=== PATIENT | female | born 1960 | race Caucasian/White ===

== ENCOUNTER 2021-09-01 08:07 | Day surgery (SDC) | payer OTHER ==
[2021-09-01] MEDS ORDERED: Depo-Medrol 40 MG/ML IM ONE (08:08)
[2021-09-01] MEDS ORDERED: Marcaine Mpf 0.5% Vial 30 Ml IJ ONE (08:08)
[2021-09-01] MEDS ORDERED: Lactated Ringers 1,000 ML IV ONE (10:23)
--- NOTE | 2021-09-01 11:38 | XRAY ---
Indication: Bilateral SI joint injection. Intraoperative fluoroscopy provided for 20 seconds. 4 digital spot image submitted for interpretation demonstrates posterior needle tip projecting over the inferior left and right SI joint. Correlate with intraoperative findings/report.
--- NOTE | 2021-09-01 12:01 | XRAY ---
20 seconds of fluoroscopy was used in surgery for a bilateral sacroiliac joint injection.
== END 2021-09-01 09:37 | disposition home or self-care (01) ==
LOC: SDC-PAIN 08:07
PROVIDERS: ATTEND Psychiatry & Neurology Pain Medicine
DX: M46.1 Sacroiliitis, not elsewhere classified (principal); E11.9 Type 2 diabetes mellitus without complications; Z79.899 Other long term (current) drug therapy
CPT/HCPCS: 27096; 72202; 77002; 82947; J1030; G0260

== ENCOUNTER 2021-10-20 09:39 | Day surgery (SDC) | payer OTHER ==
[2021-10-20] MEDS ORDERED: Marcaine Mpf 0.5% Vial 30 Ml IJ ONE (09:40)
[2021-10-20] MEDS ORDERED: Depo-Medrol 40 MG/ML IM ONE (09:40)
[2021-10-20] MEDS ORDERED: DIPRIVAN 200 MG/20 ML IV ONE (11:19)
[2021-10-20] MEDS ORDERED: Lactated Ringers 1,000 ML IV ONE (12:02)
--- NOTE | 2021-10-20 12:07 | XRAY ---
48 seconds fluoroscopy time in surgery for injection of the left SI joint and intra-articular injection of the left hip.
--- NOTE | 2021-10-20 12:21 | XRAY ---
Indication: Left SI joint and left hip injection. Intraoperative fluoroscopy provided for 48 seconds. 3 digital spot image obtained prone submitted for interpretation demonstrates posterior needle tip projecting over the inferior left SI joint. Second needle tip lateral to the left femur neck with small amount of contrast injected for needle tip placement. Correlate with intraoperative findings/report.
== END 2021-10-20 11:53 | disposition home or self-care (01) ==
LOC: SDC-PAIN 09:39
PROVIDERS: ATTEND Psychiatry & Neurology Pain Medicine
DX: M46.1 Sacroiliitis, not elsewhere classified (principal); M16.12 Unilateral primary osteoarthritis, left hip; E11.9 Type 2 diabetes mellitus without complications; Z79.899 Other long term (current) drug therapy
CPT/HCPCS: 20610; 27096; 73501; 77002; 82947; J1030; J2704; Q9966; G0260

== ENCOUNTER 2021-12-15 09:27 | Day surgery (SDC) | payer OTHER ==
[2021-12-15] MEDS ORDERED: LIDOCAINE HCL 2% 100 MG/5 ML IJ ONE (09:28)
[2021-12-15] MEDS ORDERED: DIPRIVAN 200 MG/20 ML IV ONE (11:20)
[2021-12-15] MEDS ORDERED: Lactated Ringers 1,000 ML IV ONE (12:42)
--- NOTE | 2021-12-15 13:48 | XRAY ---
19 seconds of fluoroscopy was used in surgery for a bilateral L4-S1 MBB.
--- NOTE | 2021-12-15 19:53 | XRAY ---
Indication: Bilateral L4-S1 MBB. Intraoperative fluoroscopy provided for 19 seconds. Single digital spot image submitted for interpretation demonstrates posterior needle tips projecting over the expected left and right L4-S1 nerve roots. Correlate with intraoperative findings/report.
== END 2021-12-15 11:55 | disposition home or self-care (01) ==
LOC: SDC-PAIN 09:27
PROVIDERS: ATTEND Psychiatry & Neurology Pain Medicine
DX: M47.816 Spondylosis without myelopathy or radiculopathy, lumbar region (principal); E11.9 Type 2 diabetes mellitus without complications; Z79.899 Other long term (current) drug therapy
CPT/HCPCS: 64493; 64494; 72020; 77002; 82947; J2704

== ENCOUNTER 2022-01-19 09:39 | Day surgery (SDC) | payer OTHER ==
[2022-01-19] MEDS ORDERED: Depo-Medrol 40 MG/ML IM ONE (09:40)
[2022-01-19] MEDS ORDERED: BUPIVACAINE 0.5% VIAL IJ ONE (09:40)
[2022-01-19] MEDS ORDERED: DIPRIVAN 200 MG/20 ML IV ONE (11:46)
[2022-01-19] MEDS ORDERED: Lactated Ringers 1,000 ML IV ONE (13:07)
--- NOTE | 2022-01-19 14:13 | XRAY ---
Indication: Bilateral L4-S1 MBB. Intraoperative fluoroscopy provided for 8 seconds. Single digital spot image submitted for interpretation demonstrates posterior needle tips projecting over the expected left and right L4-S1 nerve roots. Correlate with intraoperative findings/report.
--- NOTE | 2022-01-19 14:19 | XRAY ---
8 seconds of fluoroscopy was used in surgery for a bilateral L4-S1 MBB.
== END 2022-01-19 12:09 | disposition home or self-care (01) ==
LOC: SDC-PAIN 09:39
PROVIDERS: ATTEND Psychiatry & Neurology Pain Medicine
DX: M47.816 Spondylosis without myelopathy or radiculopathy, lumbar region (principal); E11.9 Type 2 diabetes mellitus without complications; Z79.899 Other long term (current) drug therapy
CPT/HCPCS: 64493; 64494; 72020; 77002; 82947; J1030; J2704

== ENCOUNTER 2022-03-02 09:32 | Day surgery (SDC) | payer OTHER ==
[2022-03-02] MEDS ORDERED: XYLOCAINE-MPF 1% 5ML SDV IJ ONE (09:33)
[2022-03-02] MEDS ORDERED: Depo-Medrol 40 MG/ML IM ONE (09:33)
[2022-03-02] MEDS ORDERED: BUPIVACAINE 0.5% VIAL IJ ONE (09:33)
[2022-03-02] MEDS ORDERED: DIPRIVAN 200 MG/20 ML IV ONE (11:44)
[2022-03-02] MEDS ORDERED: TORAdol 30 mg Injection ONE (12:09)
--- NOTE | 2022-03-02 12:22 | XRAY ---
Indication: Left L4-S1 RFA. Intraoperative fluoroscopy provided for 21 seconds. 3 digital spot images submitted for interpretation demonstrates posterior needle tips projecting over the left L4-S1 nerve roots. Correlate with intraoperative findings/report.
--- NOTE | 2022-03-02 13:51 | XRAY ---
21 seconds of fluoroscopy was used in surgery for a left L4-S1 RFA.
[2022-03-02] MEDS ORDERED: Lactated Ringers 1,000 ML IV ONE (16:29)
== END 2022-03-02 12:16 | disposition home or self-care (01) ==
LOC: SDC-PAIN 09:32
PROVIDERS: ATTEND Psychiatry & Neurology Pain Medicine
DX: M47.816 Spondylosis without myelopathy or radiculopathy, lumbar region (principal); E11.9 Type 2 diabetes mellitus without complications; Z79.899 Other long term (current) drug therapy
CPT/HCPCS: 64635; 64636; 72100; 77002; 82947; J1030; J1885; J2704

== ENCOUNTER 2022-03-09 09:34 | Day surgery (SDC) | payer OTHER ==
[2022-03-09] MEDS ORDERED: BUPIVACAINE 0.5% VIAL IJ ONE (09:35)
[2022-03-09] MEDS ORDERED: LIDOCAINE HCL 1% 50 MG/5 ML VL PF IJ ONE (09:35)
[2022-03-09] MEDS ORDERED: Depo-Medrol 40 MG/ML IM ONE (09:35)
[2022-03-09] MEDS ORDERED: DIPRIVAN 200 MG/20 ML IV ONE (11:36)
[2022-03-09] MEDS ORDERED: Lactated Ringers 1,000 ML IV ONE (13:03)
--- NOTE | 2022-03-09 13:11 | XRAY ---
Indication: Right L4-S1 RFA. Intraoperative fluoroscopy provided for 21 seconds. 3 digital spot image submitted for interpretation demonstrates posterior needle tips projecting over the expected right L4-S1 nerve roots. Correlate with intraoperative findings/report.
--- NOTE | 2022-03-09 13:15 | XRAY ---
21 seconds fluoroscopy time in surgery for right L4-S1 RFA.
== END 2022-03-09 12:03 | disposition home or self-care (01) ==
LOC: SDC-PAIN 09:34
PROVIDERS: ATTEND Psychiatry & Neurology Pain Medicine
DX: M47.816 Spondylosis without myelopathy or radiculopathy, lumbar region (principal); E11.9 Type 2 diabetes mellitus without complications; Z79.899 Other long term (current) drug therapy
CPT/HCPCS: 64635; 64636; 72100; 77002; 82947; J1030; J2001; J2704

== ENCOUNTER 2022-04-06 10:01 | Day surgery (SDC) | payer OTHER ==
[2022-04-06] MEDS ORDERED: BUPIVACAINE 0.5% VIAL IJ ONE (10:02)
[2022-04-06] MEDS ORDERED: Depo-Medrol 40 MG/ML IM ONE (10:02)
[2022-04-06] MEDS ORDERED: DIPRIVAN 200 MG/20 ML IV ONE (12:27)
--- NOTE | 2022-04-06 14:31 | XRAY ---
Indication: Left SI joint and left hip injection. Intraoperative fluoroscopy provided for 43 seconds. 5 digital spot images obtained prone submitted for interpretation demonstrates posterior needle tip projecting over the left SI joint. Second needle tip lateral to the left femur neck with small amount of contrast injected for needle tip placement. Correlate with intraoperative findings/report.
[2022-04-06] MEDS ORDERED: Lactated Ringers 1,000 ML IV ONE (14:32)
--- NOTE | 2022-04-06 15:13 | XRAY ---
43 seconds of fluoroscopy was used in surgery for a left sacroiliac joint and left intra-articular hip injection.
== END 2022-04-06 12:54 | disposition home or self-care (01) ==
LOC: SDC-PAIN 10:01
PROVIDERS: ATTEND Psychiatry & Neurology Pain Medicine
DX: M46.1 Sacroiliitis, not elsewhere classified (principal); E11.9 Type 2 diabetes mellitus without complications; M16.12 Unilateral primary osteoarthritis, left hip; Z79.899 Other long term (current) drug therapy
CPT/HCPCS: 20610; 27096; 73501; 77002; 82947; J1030; J2704; Q9966; G0260

== ENCOUNTER 2022-05-18 09:02 | Day surgery (SDC) | payer OTHER ==
[2022-05-18] MEDS ORDERED: Depo-Medrol 40 MG/ML IM ONE (09:03)
[2022-05-18] MEDS ORDERED: LIDOCAINE HCL 1% 50 MG/5 ML VL PF IJ ONE (09:03)
[2022-05-18] MEDS ORDERED: Decadron 4 MG INJ IV ONE (09:03)
[2022-05-18] MEDS ORDERED: Sodium Chloride 0.9(Preservative Free) 10 ML IJ ONE (09:03)
[2022-05-18] MEDS ORDERED: DIPRIVAN 200 MG/20 ML IV ONE ×2 (10:40→10:54)
--- NOTE | 2022-05-18 11:33 | XRAY ---
Indication: Left L4-S1 transforaminal POORNIMA. Intraoperative fluoroscopy provided for 21 seconds. 4 digital spot image submitted for interpretation demonstrates posterior needle tips projecting over the expected left L4 and L5 nerve roots. Small amount of contrast injected for needle tip placement. Correlate with intraoperative findings/report.
--- NOTE | 2022-05-18 11:33 | XRAY ---
Indication: Left piriformis injection POORNIMA. Intraoperative fluoroscopy provided for 9 seconds. Single digital spot image submitted for interpretation demonstrates posterior needle tip projecting over the left piriformis muscle. Small amount of contrast injected for needle tip placement. Correlate with intraoperative findings/report.
--- NOTE | 2022-05-18 11:36 | XRAY ---
9 seconds of fluoroscopy was used in surgery for a left piriformis injection.
--- NOTE | 2022-05-18 11:36 | XRAY ---
21 seconds of fluoroscopy was used in surgery for a left L4-S1 transforaminal POORNIMA.
[2022-05-18] MEDS ORDERED: Lactated Ringers 1,000 ML IV ONE (14:02)
== END 2022-05-18 11:15 | disposition home or self-care (01) ==
LOC: SDC-PAIN 09:02
PROVIDERS: ATTEND Psychiatry & Neurology Pain Medicine
DX: M54.16 Radiculopathy, lumbar region (principal); M79.18 Myalgia, other site; E11.9 Type 2 diabetes mellitus without complications; Z79.899 Other long term (current) drug therapy
CPT/HCPCS: 20552; 64483; 64484; 72100; 72170; 76942; 77002; 77003; 82947; J1030; J1100; J2001; J2704; Q9966

== ENCOUNTER 2023-06-22 08:35 | Day surgery (SDC) | payer OTHER ==
[2023-06-22 09:03] VITALS: RESP 18
[2023-06-22] MEDS: Lactated Ringers 1,000 ML IV SCH (09:25)
[2023-06-22] MEDS ORDERED: DIPRIVAN 200 MG/20 ML IV ONE ×2 (11:42→11:50)
[2023-06-22 12:32] VITALS: TEMP 97.4; O2SAT 98
[2023-06-22 12:39] VITALS: BP 137/67; PULSE 66
--- NOTE | 2023-06-22 13:21 | OP ---
SURGERY DATE/TIME: 06/22/2023 1140 PREOPERATIVE DIAGNOSIS: History of colon polyps. POSTOPERATIVE DIAGNOSIS: Colon polyps. PROCEDURE: Colonoscopy with multiple polypectomies. SURGEON: Lemuel Bae M.D. ANESTHESIA: IV anesthesia. CONDITION: Stable. COMPLICATIONS: None. SPECIMEN: Cecal polyp 3 mm, transverse colon polyp 2 mm, rectosigmoid polyp 2 mm x2, anal polyp 3 mm. HISTORY: The patient has a history of colon polyps 10 to 15 years ago on colonoscopy with a family member just recently diagnosed with advanced polyp and presents for colonoscopy. FINDINGS: Fair preparation. Polyps as below. DESCRIPTION OF PROCEDURE: The patient brought to endoscopy suite, routinely positioned and prepared. Time out performed. Digital rectal exam was normal. There might be a small polyp palpable. The colonoscope is then inserted and advanced to the cecum confirmed by the ileocecal valve and appendiceal orifice. Bowel prep is Aronchick fair preparation. Withdrawal greater than six minutes. POLYPS REMOVED: 1) A 3 mm cecal polyp was taken with cold forceps completely. 2) Transverse colon polyp 2 mm taken with cold forceps. 3) Rectosigmoid polyp 3 mm x2 hyperplastic in appearance taken with cold forceps. 4) Anal polyp 3 mm possibly hyperplastic taken with cold forceps. 5) In the rectosigmoid there are multiple hyperplastic appearing polyps representively taken. RECOMMENDATIONS: I recommend colonoscopy in three years depending on pathology. If there are hyperplastic appearing polyps or adenomatous, I would do it in two years.
== END 2023-06-22 12:47 | disposition home or self-care (01) ==
LOC: SDC 08:35
PROVIDERS: ATTEND Surgery
DX: Z09 Encounter for follow-up examination after completed treatment for conditions other than malignant neoplasm (principal); Z86.010 Personal history of colon polyps; E11.9 Type 2 diabetes mellitus without complications; D12.7 Benign neoplasm of rectosigmoid junction; D12.0 Benign neoplasm of cecum; D12.3 Benign neoplasm of transverse colon
CPT/HCPCS: 82947; J2704

== ENCOUNTER 2023-07-20 21:23 | Emergency (ER) | payer OTHER ==
[2023-07-20] MEDS ORDERED: BABY ASPIRIN 81 MG CHEW ONE (21:47)
[2023-07-20] MEDS: BABY ASPIRIN 81 MG CHEW PO ONE (21:48)
[2023-07-20 21:53] LABS: Absolute Neutrophil Ct (ANC) 5.45 x10^3/uL (1.4-6.9); Basophil (Absolute #) 0.09 x10^3/uL (0-0.4); Eosinophil % 2.5 % (0.00-5.0); Eosinophil (Absolute #) 0.22 x10^3/uL (0-0.5); Hemoglobin 12.9 g/dL (12.0-16.0); IMMATURE GRAN # 0.02 x10^3u/L (0.00-0.03); IMMATURE GRAN % 0.2 % (0.00-0.4); Lymphocyte (Absolute #) 2.07 x10^3/uL (1.0-4.6); Lymphocytes % 23.8 % (24.0-44.0); Mean Cell Volume 88.4 fL (78-100); Mean Corpuscular Hemoglobin 29.3 pg (26-32); Mean Corpuscular Hgb Concent. 33.1 g/dL (32-36); Mean Platelet Volume 9.1 fL (7.5-11.0); Monocyte (Absolute #) 0.85 x10^3/uL (0.0-1.3); Monocytes % 9.8 % (0.0-12.0); Neutrophil % 62.7 % (36.0-66.0); Platelet Count 358 x10^3/uL (150-450); Red Blood Count 4.41 x10^6/uL (4.1-5.4); Red Cell Distribution Width 13.2 % (11.5-14.0); White Blood Count 8.7 x10^3/uL (4.0-10.5)
--- NOTE | 2023-07-20 22:00 | ERPHSYRPT ---
- History of Present Illness Time Seen by Provider: 07/20/23 21:24 Historian: patient, family Exam Limitations: no limitations Patient Subjective Stated Complaint: chest pain after a heated argument with her daughter in law Triage Nursing Assessment: pt brought back to ER room 8 by this nurse. Pt is alert and oriented x4, cooperative, spouse at bedside. Pt is hard of hearing. Pt c/o midsternal chest pain that radiates to her back which began around 8pm after a very heated discussion with her [id number]. Pt is very anxious from the argument. Lungs clear, heart tones reg, no edema noted. Physician History: 63-year-old female with history of hypertension, hyperlipidemia, diabetes mellitus, anxiety presented in the ER with complains of substernal chest pain sudden onset almost around 8 PM after she had heated argument with her [id number] about grandkids. Patient reports she was very anxious and s tarted to have chest pain with radiation to the back, 5/10 intensity with palpitations and started to improve and currently having 3/10 intensity. Denies any history of coronary artery disease or chest pains in the past. Patient is very anxious. Denies any cough fever chills or difficulty breathing. Aspirin Treatment Today: unknown Allergies/Adverse Reactions: No Known Drug Allergies Allergy (Verified 07/20/23 21:40) Home Medications: Amitriptyline HCl 25 mg [Amitriptyline 25 mg Tablet] 25 mg PO UD 05/08/23 [History] Amlodipine Besylate 5 mg [Norvasc 5 mg] 5 mg PO DAILY 05/08/23 [History] Aspirin EC 81 mg [Ecotrin 81 mg] 81 mg PO DAILY 05/08/23 [History] Atorvastatin Calcium 40 mg PO DAILY 05/08/23 [History] Celecoxib 100 mg [celeBREX 100 MG] 200 mg PO UD 05/08/23 [History] Citalopram Hydrobromide 20 mg* [ceLEXa 20 MG] 40 mg PO UD 05/08/23 [History] Empagliflozin [Jardiance] 10 mg PO UD 05/08/23 [History] Ezetimibe 10 mg [Zetia 10 MG] 10 mg PO UD 05/08/23 [History] Fexofenadine HCl 180 mg PO UD 05/08/23 [History] Gabapentin [Neurontin ] 800 mg PO UD 05/08/23 [History] Losartan Potassium 50 mg [Cozaar 50 MG] 50 mg PO UD 05/08/23 [History] Hx Tetanus, Diphtheria Vaccination/Date Given: Yes Hx Influenza Vaccination/Date Given: No Hx Pneumococcal Vaccination/Date Given: No Travel Risk - International Travel Have you traveled outside of the country in past 3 weeks: No - Emerging Infectious Disease Are you exhibiting symptoms associated with any current EIDs: No - Review of Systems Constitutional: No Symptoms Eyes: No Symptoms Ears, Nose, & Throat: No Symptoms Respiratory: No Symptoms Cardiac: Chest Pain, Palpitations Abdominal/Gastrointestinal: No Symptoms Genitourinary Symptoms: No Symptoms Musculoskeletal: No Symptoms Skin: No Symptoms Neurological: No Symptoms Psychological: Anxiety Endocrine: No Symptoms Hematologic/Lymphatic: No Symptoms Immunological/Allergic: No Symptoms - Past Medical History Pertinent Past Medical History: Yes Neurological History: No Pertinent History ENT History: No Pertinent History Cardiac History: Hypertension Respiratory History: No Pertinent History Endocrine Medical History: Diabetes Type II Musculoskeletal History: No Pertinent History GI Medical History: No Pertinent History History: No Pertinent History Psycho-Social History: Anxiety Female Reproductive Disorders: No Pertinent History - Past Surgical History Past Surgical History: Yes Neuro Surgical History: No Pertinent History Cardiac: No Pertinent History Respiratory: No Pertinent History Gastrointestinal: No Pertinent History Genitourinary: No Pertinent History Musculoskeletal: Other Female Surgical History: Tubal Ligation Other Surgical History: uterine ablation, wrist cyst surgery. multiple back shots. - Social History Smoking Status: Former smoker Exposure to second hand smoke: No Drug Use: none - Nursing Vital Signs Nursing Vital Signs: Initial Vital Signs Temperature 97.9 F 07/20/23 21:26 Pulse Rate 88 07/20/23 21:26 Respiratory Rate 20 07/20/23 21:26 Blood Pressure 173/92 07/20/23 21:26 O2 Sat by Pulse Oximetry 98 07/20/23 21:26 Pain Scale Pain Intensity 0 - Physical Exam General Appearance: no apparent distress, alert, anxiety Eye Exam: PERRL/EOMI Ears, Nose, Throat Exam: normal ENT inspection Neck Exam: normal inspection, full range of motion Respiratory Exam: normal breath sounds, lungs clear Cardiovascular Exam: regular rate/rhythm, normal heart sounds Gastrointestinal/Abdomen Exam: soft, normal bowel sounds, No tenderness Back Exam: normal inspection, normal range of motion Extremity Exam: normal inspection, normal range of motion Neurologic Exam: alert, oriented x 3, cooperative, electronics system mechanic II-XII nml as tested, No normal mood/affect (Anxious) Skin Exam: normal color SpO2 Interpretation: normal SpO2: 98 O2 Delivery: Room Air - Course EKG Interpreted by Me: RATE (87), Sinus Rhythm, Right [place] Deviation, prolonged QT interval, Right Bundle Branch Block (Symptoms to be called "), Non-specific ST Changes, Other (Second EKG time 1:23 AM. Rate 77 bpm, sinus rhythm, right axis deviation, right bundle branch block, no ST elevations, prolonged QTc interval) Ordered Tests: Active Orders 24 hr Category Date Time Status Financial Services Consultant STAT Care 07/20/23 21:42 Completed EKG-ER Only STAT Care 07/20/23 21:42 Completed EKG-ER Only STAT Care 07/21/23 01:26 Completed IV Insertion STAT Care 07/20/23 21:42 Completed CHEST 1 VIEW (PORTABLE) Stat Exams 07/20/23 21:57 Completed CHEST WITH CONTRAST [CT] Stat Exams 07/20/23 22:56 Completed CBC W DIFF Stat Lab 07/20/23 21:45 Completed CK-Creatinine Phosphokinase Stat Lab 07/20/23 21:45 Completed CMP Stat Lab 07/20/23 21:45 Completed D-DIMER QUANTITATIVE Stat Lab 07/20/23 21:45 Completed NT PRO BNPII Stat Lab 07/20/23 21:45 Completed PTT Stat Lab 07/21/23 01:19 Completed TROPONIN Q4H Lab 07/20/23 21:45 Completed TROPONIN Q4H Lab 07/21/23 00:25 Completed Medication Summary Discontinued Medications Generic Name Dose Route Start Last Admin Trade Name Freq PRN Reason Stop Dose Admin Aspirin 324 mg 07/20/23 21:42 07/20/23 21:48 Aspirin 81 Mg Tab.Chew PO 07/20/23 21:43 324 mg STAT ONE Administration Aspirin Confirm 07/20/23 21:47 Aspirin 81 Mg Tab.Chew Administered 07/20/23 21:48 Dose 324 mg .ROUTE .STK-MED ONE Diphenhydramine HCl 25 mg 07/20/23 23:22 07/20/23 23:25 Diphenhydramine Hcl 50 Mg/Ml Vial IV 07/20/23 23:23 25 mg STAT ONE Administration Diphenhydramine HCl Confirm 07/20/23 23:23 Diphenhydramine Hcl 50 Mg/Ml Vial Administered 07/20/23 23:24 Dose 50 mg .ROUTE .STK-MED ONE Heparin Sodium (Beef Lung) 5,000 unit 07/21/23 01:21 07/21/23 01:23 Heparin 5000 Units/0.5 Ml 5,000 Unit/0.5 Ml Syr IV 07/21/23 01:22 5,000 unit STAT ONE Administration Heparin Sodium (Beef Lung) Confirm 07/21/23 01:23 Heparin 5000 Units/0.5 Ml 5,000 Unit/0.5 Ml Syr Administered 07/21/23 01:24 Dose 5,000 unit .ROUTE .STK-MED ONE Heparin Sodium/Dextrose Confirm 07/21/23 01:30 Heparin 25,000 Units/D5w: Use Order Set Greg Administered 07/21/23 01:31 Dose 25,000 units in 250 mls @ ud IV .STK-MED ONE Heparin Sodium/Dextrose 25,000 units in 250 mls @ 13.128 mls/hr 07/21/23 02:00 07/21/23 01:39 Heparin 25,000 Units/D5w: Use Order Set Greg IV 08/20/23 01:59 12 units/kg/hr .Q19H3M NIRMAL 13.128 mls/hr Administration Protocol 12 UNITS/KG/HR Morphine Sulfate 4 mg 07/20/23 22:42 07/20/23 23:10 Morphine Sulfate 4 Mg/Ml Injection IV 07/20/23 22:43 4 mg STAT ONE Administration Morphine Sulfate Confirm 07/20/23 22:54 Morphine Sulfate 4 Mg/Ml Injection Administered 07/20/23 22:55 Dose 4 mg .ROUTE .STK-MED ONE Nitroglycerin 0.5 gm 07/20/23 22:42 07/20/23 23:12 Nitroglycerin 1 Gm Packet TOP 07/20/23 22:43 0.5 gm STAT ONE Administration Nitroglycerin Confirm 07/20/23 22:53 Nitroglycerin 1 Gm Packet Administered 07/20/23 22:54 Dose 1 gm .ROUTE .STK-MED ONE Ondansetron HCl 4 mg 07/20/23 22:42 07/20/23 23:06 Ondansetron Hcl 4 Mg/2 Ml Vial IV 07/20/23 22:43 4 mg STAT ONE Administration Ondansetron HCl Confirm 07/20/23 22:53 Ondansetron Hcl 4 Mg/2 Ml Vial Administered 07/20/23 22:54 Dose 4 mg .ROUTE .STK-MED ONE Lab/Rad Data: Laboratory Result Diagrams 07/20/23 21:45 07/20/23 21:45 Laboratory Results 07/21/23 07/21/23 07/20/23 Range/Units 01:19 00:25 21:45 WBC (4.0-10.5) x10^3/uL RBC (4.1-5.4) x10^6/uL Hgb (12.0-16.0) g/dL Hct (35-47) % MCV (78-100) fL MCH (26-32) pg MCHC (32-36) g/dL RDW (11.5-14.0) % Plt Count (150-450) x10^3/uL MPV (7.5-11.0) fL Gran % (36.0-66.0) % Immature Gran % (Auto) (0.00-0.4) % Nucleat RBC Rel Count (0.00-0.1) % Eos # (Auto) (0-0.5) x10^3/uL Immature Gran # (Auto) (0.00-0.03) x10^3u/L Absolute Lymphs (auto) (1.0-4.6) x10^3/uL Absolute Monos (auto) (0.0-1.3) x10^3/uL Absolute Nucleated RBC (0.00-0.01) x10^3u/L Lymphocytes % (24.0-44.0) % Monocytes % (0.0-12.0) % Eosinophils % (0.00-5.0) % Basophils % (0.0-0.4) % Absolute Granulocytes (1.4-6.9) x10^3/uL Basophils # (0-0.4) x10^3/uL APTT 24.5 L (25.1-36.5) SECONDS D-Dimer (0.0-0.50) mg/L Sodium (135-145) mmol/L Potassium (3.5-5.1) mmol/L Chloride (98-107) mmol/L Carbon Dioxide (22-30) mmol/L Anion Gap (5-15) MEQ/L BUN (7-17) mg/dL Creatinine (0.52-1.04) mg/dL Estimated GFR ML/MIN Glucose (74-106) mg/dL Calcium (8.4-10.2) mg/dL Total Bilirubin (0.2-1.3) mg/dL AST (14-36) U/L ALT (0-35) U/L Alkaline Phosphatase (38-126) U/L Creatine Kinase (30-135) U/L Troponin I 2.190 H* 0.368 H* (0.000-0.033) ng/mL NT-Pro-B Natriuret Pep 27.4 (<300) pg/mL Serum Total Protein (6.3-8.2) g/dL Albumin (3.5-5.0) g/dL 07/20/23 07/20/23 07/20/23 Range/Units 21:45 21:45 21:45 WBC 8.7 (4.0-10.5) x10^3/uL RBC 4.41 (4.1-5.4) x10^6/uL Hgb 12.9 (12.0-16.0) g/dL Hct 39.0 (35-47) % MCV 88.4 (78-100) fL MCH 29.3 (26-32) pg MCHC 33.1 (32-36) g/dL RDW 13.2 (11.5-14.0) % Plt Count 358 (150-450) x10^3/uL MPV 9.1 (7.5-11.0) fL Gran % 62.7 (36.0-66.0) % Immature Gran % (Auto) 0.2 (0.00-0.4) % Nucleat RBC Rel Count 0.0 (0.00-0.1) % Eos # (Auto) 0.22 (0-0.5) x10^3/uL Immature Gran # (Auto) 0.02 (0.00-0.03) x10^3u/L Absolute Lymphs (auto) 2.07 (1.0-4.6) x10^3/uL Absolute Monos (auto) 0.85 (0.0-1.3) x10^3/uL Absolute Nucleated RBC 0.00 (0.00-0.01) x10^3u/L Lymphocytes % 23.8 L (24.0-44.0) % Monocytes % 9.8 (0.0-12.0) % Eosinophils % 2.5 (0.00-5.0) % Basophils % 1.0 (0.0-0.4) % Absolute Granulocytes 5.45 (1.4-6.9) x10^3/uL Basophils # 0.09 (0-0.4) x10^3/uL APTT (25.1-36.5) SECONDS D-Dimer 0.73 H* (0.0-0.50) mg/L Sodium 141 (135-145) mmol/L Potassium 4.0 (3.5-5.1) mmol/L Chloride 103 (98-107) mmol/L Carbon Dioxide 30 (22-30) mmol/L Anion Gap 12.5 (5-15) MEQ/L BUN 11 (7-17) mg/dL Creatinine 0.73 (0.52-1.04) mg/dL Estimated GFR 91.8 ML/MIN Glucose 214 H (74-106) mg/dL Calcium 9.5 (8.4-10.2) mg/dL Total Bilirubin 0.50 (0.2-1.3) mg/dL AST 56 H (14-36) U/L ALT 46 H (0-35) U/L Alkaline Phosphatase 94 (38-126) U/L Creatine Kinase 74 (30-135) U/L Troponin I (0.000-0.033) ng/mL NT-Pro-B Natriuret Pep (<300) pg/mL Serum Total Protein 8.6 H (6.3-8.2) g/dL Albumin 4.2 (3.5-5.0) g/dL - Progress Progress: improved, re-examined Air Movement: good Progress Note: 07/20/23 23:54 63-year-old is evaluated in the ER for substernal chest pain. EKG showed sinus rhythm with no acute ST elevations suggesting acute ischemia. Has right bundle branch block. She is given symptomatic treatment with aspirin, morphine and Nitropaste, on reevaluation her pain is resolved. She is on room air 97%. Patient has white count of 11, chemistries showed troponin of 0.36. Patient does not have any known history of CAD. Chest x-ray reviewed by me revealed some basilar questionable airspace disease. Official report is pending. Patient has elevated D-dimer and CTA is negative for pulmonary embolism but did show some element of pulmonary edema, mild cardiomegaly and groundglass opacities. Patient does report having some cough and cold symptoms for the last few days. I believe patient has viral etiology bronchitis/pneumonia. I do not think patient needs antibiotic. Could have some early onset CHF although her BNP is normal. With elevated initial troponin, I believe patient would benefit with facility having inpatient cardiology services for NSTEMI. I have discussed the results of workup with patient and family and recommended transfer to [facility] which she agreed. 07/21/23 01:18 I have discussed with [facility] transfer center and patient is excepted on behalf of Dr. Morales in the emergency room. 07/21/23 01:22 Patient repeat troponins is 2.1, she is chest pain-free currently, has no absolute contraindications to heparinization and given a bolus of heparin and will start on the drip. 07/21/23 01:41 Repeat EKG is negative for any acute ST elevations. Patient remained chest pain-free. Blood Culture(s) Obtained: No Antibiotics given: No Counseled pt/family regarding: lab results, diagnosis, rad results Medical Desision Making - Independent Historian Additional History obtained from: Spouse - Discussion of managment Care discussed with:: on-call "doc" Reviewed:: Test results Agreed on:: Treatment plan Will see patient: in ED - Diagnostic Testing Diagnostic test were ordered, analyzed, and reviewed by me: Yes Radiological Interpretation: Interpreted by me, Reviewed by me, Teleradiologist Report - Risk of complications The pt has a high risk of morbidity or mortality based on: Decision regarding ho spitilization or escalation of hosp level of care - Departure Departure Disposition: Transfer Clinical Impression: NSTEMI (non-ST elevated myocardial infarction) Condition: Stable Critical Care Time: No Referrals: EVON HUBBARD DO [Primary Care Provider] - Follow up/PCP as directed
[2023-07-20 22:05] LABS: ALBUMIN 4.2 g/dL (3.5-5.0); ANION GAP 12.5 MEQ/L (5-15); BILIRUBIN,TOTAL 0.5 mg/dL (0.2-1.3); Calcium 9.5 mg/dL (8.4-10.2); Creatinine 1 0.73 mg/dL (0.52-1.04); EST GLOMERULAR FILTRATION RATE 91.8 ML/MIN; Total Protein 8.6 g/dL (6.3-8.2)
[2023-07-20 22:17] LABS: NT PRO BNPII 27.4 pg/mL (<300)
[2023-07-20 22:37] LABS: TROPONIN 0.368 ng/mL (0.000-0.033)
[2023-07-20] MEDS ORDERED: Zofran 4 MG/2 ML VIAL ONE (22:53)
[2023-07-20] MEDS ORDERED: NITRO-BID 2% UD PACKETS ONE (22:53)
[2023-07-20] MEDS ORDERED: MORPHINE SULFATE 4 MG INJ ONE (22:54)
[2023-07-20] MEDS: Zofran 4 MG/2 ML VIAL IV ONE (23:06)
[2023-07-20] MEDS: MORPHINE SULFATE 4 MG INJ IV ONE (23:10)
[2023-07-20] MEDS: NITRO-BID 2% UD PACKETS TOP ONE (23:12)
[2023-07-20] MEDS ORDERED: BENADRYL 50 MG/ML ONE (23:23)
[2023-07-20] MEDS: BENADRYL 50 MG/ML IV ONE (23:25)
--- NOTE | 2023-07-20 23:43 | XRAY ---
CLINICAL HISTORY: cp , PE? COMPARISON: None TECHNIQUE: Axial CT images of the chest were acquired with the administration of intravenous contrast. Coronal and sagittal reconstructions were obtained. 20 cc Multihance was administered for post-contrast images. FINDINGS: No definite filling defect is identified within the pulmonary trunk, its right and left main branches or there are segmental and subsegmental branches to suggest features of pulmonary embolism. The main trunk diameter is within normal limits. Mild paraseptal and centrilobular emphysematous changes are identified in bilateral upper lung lobes. Mild perihilar pulmonary vascular congestion is identified with patchy ground-glass haze bilaterally. The scanned pulmonary parenchyma shows no definite consolidative lesions. No free or encysted pleural effusion. Heart size appears enlarged with a cardiothoracic ratio of 15:29. There is no pericardial effusion. No pathologically enlarged mediastinal, hilar, or axillary lymph node identified. Atherosclerotic changes are identified in the visualized aorta without significant luminal narrowing. No evidence of aortic dissection or aneurysmal dilatation. There is no definite mass lesion in the chest wall. Spondylotic changes are identified in the visualized spine. The scanned upper abdomen is unremarkable. IMPRESSION: 1. No evidence of pulmonary embolism. 2. Centrilobular and paraseptal emphysematous changes in bilateral upper lung lobes with patchy ground-glass haze bilaterally. 3. Mild cardiomegaly. Mild perihilar pulmonary vascular prominence with patchy ground-glass haze bilaterally. Clinical and laboratory correlation is recommended to rule out features of pulmonary edema. 4. The rest of the findings are as stated above. Electronically Signed by: Santiago Atkinson MD. (07/20/2023 23:40:02 EDT)
[2023-07-21 01:07] VITALS: BP 118/73; PULSE 79; RESP 21; TEMP 98
[2023-07-21 01:22] VITALS: O2SAT 98
[2023-07-21] MEDS: HEPARIN 5000 UNITS/0.5 ML (HIGH RISK MED) IV ONE (01:23)
[2023-07-21] MEDS ORDERED: HEPARIN 5000 UNITS/0.5 ML (HIGH RISK MED) ONE (01:23)
[2023-07-21] MEDS ORDERED: Heparin 25,000 units/D5W: USE ORDER SET PROTO 25,000 UNITS/250 ML BAG IV ONE (01:30)
[2023-07-21] MEDS: Heparin 25,000 units/D5W: USE ORDER SET PROTO 25,000 UNITS/250 ML BAG IV SCH (01:39)
--- NOTE | 2023-07-21 09:19 | XRAY ---
Indication: Chest pain. Comparison: None Portable chest inflated and clear. Heart borderline enlarged. Bony thorax intact with osteopenia and mild degenerative changes.
== END 2023-07-21 01:42 | disposition short-term general hospital (02) ==
LOC: ED 21:23
DX: I21.4 Non-ST elevation (NSTEMI) myocardial infarction (principal); I10 Essential (primary) hypertension; E78.5 Hyperlipidemia, unspecified; E11.9 Type 2 diabetes mellitus without complications; Z79.84 Long term (current) use of oral hypoglycemic drugs; Z79.899 Other long term (current) drug therapy
CPT/HCPCS: 36000; 36415; 71045; 71260; 80053; 82550; 83880; 84484; 85025; 85379; 85730; 93005; 93041; 96365; 96366; 96374; 96375; 99285; J1200; J1644; J2270; J2405; A9270-GY